=== PATIENT | male | born 1955 | race Asian ===

== ENCOUNTER 2017-09-04 06:57 | Emergency (ER) | payer MEDICAID ==
[~2017-09-04] VITALS: Ht 170.2 cm; Wt 94.3 kg
[~2017-09-04 06:57] MED LIST: AMITRIPTYLINE H10 MG PO; ASPIR 8181 MG PO; ATENOLOL50 MG PO; BACO TOP; CARDURA4 MG PO; CLINDAMYCIN HC300 MG PO; COLACE100 MG PO; HIBICLENS118 ML TOP; HUMALOG100 U/ML SC; HYDROCOT25 M1 PO; LAC PO; LANTUS SOLOS100 U/M1 SQ; METFORMIN HCL1000 MG PO; NORCO1 TA2 PO; PRINIVIL10 MG PO; PROSCAR5 MG PO; ZESTRIL20 MG PO; ZOCOR40 MG PO
[2017-09-04 07:16] VITALS: Ht 170.2 cm; Wt 94.3 kg
[2017-09-04 08:33] VITALS: BP 118/61
== END 2017-09-04 08:48 | disposition home or self-care (01) ==
LOC: ED 06:57
DX: J06.9 Acute upper respiratory infection, unspecified (principal); J45.909 Unspecified asthma, uncomplicated; I10 Essential (primary) hypertension; E11.9 Type 2 diabetes mellitus without complications
CPT/HCPCS: J7512; J7613; J7644; Q0092

== ENCOUNTER 2019-03-14 16:39 | Emergency (ER) | payer MEDICAID ==
[~2019-03-14] VITALS: Ht 170.2 cm; Wt 101.2 kg
[2019-03-14 16:41] VITALS: Ht 170.2 cm; Wt 101.2 kg
[2019-03-14 17:43] LABS: CALCIUM 9.2 mg/dL (8.5-10.1); CREATININE SERUM 1.6 mg/dL (0.7-1.3); POTASSIUM SERUM 4.6 mmol/L (3.5-5.1)
[2019-03-14 17:46] LABS: BASOPHIL % 0.4 % (0-2); PLATELET COUNT 280 x10^3mcL (130-400); RED CELL DISTRIBUTION WIDTH 13.2 % (11.5-14.5)
[2019-03-14 17:48] LABS: BILIRUBIN TOTAL 0.2 mg/dL (0.20-1.00); TOTAL PROTEIN, SERUM 7.1 g/dL (6.4-8.2)
[2019-03-14 17:49] LABS: ALBUMIN 3.3 g/dL (3.4-5.0)
[2019-03-14 18:34] LABS: UA SPECIFIC GRAVITY 1.015 (1.005-1.035); microscopic required? YES; urine erythrocyte 1+ (NEGATIVE)
[2019-03-14 19:25] VITALS: BP 120/67
== END 2019-03-14 19:36 | disposition home or self-care (01) ==
LOC: ED 16:39
PROVIDERS: Emergency Medicine
DX: J45.901 Unspecified asthma with (acute) exacerbation (principal); N28.9 Disorder of kidney and ureter, unspecified; I10 Essential (primary) hypertension; E11.9 Type 2 diabetes mellitus without complications; Z90.49 Acquired absence of other specified parts of digestive tract
CPT/HCPCS: 36415; 83880; J7512; J7613; J7644

== ENCOUNTER 2019-03-27 08:27 | Emergency (ER) | payer MEDICAID ==
[~2019-03-27] VITALS: Ht 170.2 cm; Wt 100.2 kg
[2019-03-27 08:29] VITALS: Ht 170.2 cm; Wt 100.2 kg
[2019-03-27 09:16] LABS: BASOPHIL % 0.3 % (0-2); PLATELET COUNT 273 x10^3mcL (130-400)
[2019-03-27 09:17] LABS: CALCIUM 9.6 mg/dL (8.5-10.1); CARBON DIOXIDE 32.9 mmol/L (21-32); CREATININE SERUM 1.5 mg/dL (0.7-1.3); POTASSIUM SERUM 4.3 mmol/L (3.5-5.1)
[2019-03-27 09:29] LABS: BILIRUBIN TOTAL 0.3 mg/dL (0.20-1.00); C REACTIVE PROTEIN 4.2 mg/dL (<=0.9)
[2019-03-27 09:30] LABS: ALBUMIN 2.9 g/dL (3.4-5.0); FREE T4 1.03 ng/dL (0.76-1.46); FREE THYROXINE INDEX 2.4 ug/dL (1.4-4.5); T4(THYROXINE) 7.2 ug/dL (4.7-13.3)
[2019-03-27 09:34] LABS: T3 TOTAL 1.09 ng/mL
[2019-03-27 09:45] LABS: CK-MB 4.2 ng/mL (0-3.6)
[2019-03-27] MEDS ORDERED: FLOVENT DI100 MCG/A1 INH (10:10)
[2019-03-27] MEDS ORDERED: LANTUS SOLOS100 U/M1 SQ (10:12)
[2019-03-27] MEDS ORDERED: METOPROLOL SUCC50 M2 PO (10:12)
[2019-03-27] MEDS ORDERED: FLO4 PO (10:14)
[2019-03-27 10:31] LABS: ERYTHROCYTE SED RATE 74 mm/hr (0-20)
[2019-03-27 13:04] VITALS: BP 124/62
== END 2019-03-27 13:04 | disposition home or self-care (01) ==
LOC: ED 08:27
PROVIDERS: Specialist
DX: J45.901 Unspecified asthma with (acute) exacerbation (principal); I10 Essential (primary) hypertension; E11.9 Type 2 diabetes mellitus without complications; Z90.49 Acquired absence of other specified parts of digestive tract
CPT/HCPCS: 36415; 36600; 82962; 84439; J7030; J7512; J7613; J7644; Q0092